=== PATIENT | male | born 1985 | race Caucasian/White ===

== ENCOUNTER 2025-06-21 14:08 | Emergency (ER) | payer MEDICAID, OTHER ==
[~2025-06-21] VITALS: Ht 177.8 cm; Wt 80.0 kg
[2025-06-21 14:21] VITALS: O2SAT 100
[2025-06-21 16:16] LABS: BASOPHILS % 0.9 % (0.0-2.0); EOSINOPHILS % 1.1 % (0.0-5.0); HEMATOCRIT. 38.0 % (42.0-52.0); HEMOGLOBIN. 12.3 g/dL (14.0-18.0); LYMPHOCYTES % 27.2 % (20.0-50.0); MEAN PLATELET VOLUME 7.7 fl (7.4-10.4); MONOCYTES % 8.0 % (2.0-8.0); NEUTROPHILS % 62.8 % (40.0-76.0); PLATELET 307 x1000/uL (130-400); RED BLOOD CELL COUNT 4.60 mill/uL (4.7-6.1); RED CELL DISTRIBUTION WIDTH 15.7 % (11.6-14.6)
[2025-06-21 16:28] LABS: CREATININE 0.8 mg/dL (0.6-1.3); ETHANOL BLOOD < 10 mg/dL (<10); TROPONIN I HIGH SENSITIVITY < 4 ng/L (3.0-53); UREA NITROGEN BLOOD 12 mg/dL (9-23)
[2025-06-21 16:30] LABS: ASPARTATE AMINOTRANSFERASE 20 IU/L (<34); BILIRUBIN DIRECT 0.1 mg/dL (<=3.0); BILIRUBIN TOTAL 0.4 mg/dL (0.1-1.0); PROTEIN TOTAL 7.1 g/dL (6.0-8.3)
[2025-06-21 16:35] LABS: INR 1.0
[2025-06-21] MEDS ORDERED: SUCR1TAB MT (16:58)
[2025-06-21] MEDS ORDERED: OMEP10CA5 MT (16:58)
[2025-06-21 17:16] VITALS: BP 124/64; PULSE 64; RESP 16; TEMP 36.9; O2SAT 100
== END 2025-06-21 17:20 | disposition home or self-care (01) ==
LOC: ER 14:08 → CANBEDREQ 17:00 → ER 17:20
DX: R10.13 Epigastric pain (principal); Z91.014 Allergy to mammalian meats; Z91.010 Allergy to peanuts; Z79.899 Other long term (current) drug therapy
CPT/HCPCS: 36415; 71045; 76705; 80048; 80076; 80320; 83735; 84484; 85025; 99284; G0480